=== PATIENT | female | born 1950 | race Caucasian/White ===

== ENCOUNTER → 2017-01-16 | Outpatient (REF) ==
[~2017-01-16] MED LIST: ALBUTEROL SULFAT3 M3 INH; ALBUTEROL1.25 MG/3 IH; BYSTOLIC10 MG PO; CLARITIN 1010 MG/TAB PO; CYANOCOBAL1000 MCG/1 IM; CYANOCOBAL1000 MCG/1 INJ; DRISDOL50000 IU PO; DYRENIUM 50MG C50 MG PO; FLOVENT 44MCG I13 GM IH; HALCION0.25 MG PO; LOTRIMIN1% TP; MAXZIDE 50 MG-71 TAB PO; NASONEX SPRAY17 GM NAS; PREDNISONE 5MG5 MG PO; PREDNISONE20 MG PO; PROAIR HFA0.09 MG/AC INH; PROTONIX 40MG T40 MG PO; RT SPIRIVA18 MCG IH; SINGULAIR 110 MG/TAB PO; TYLENOL 325MG325 MG PO; TYLENOL 500MG500 MG PO; VITAMIN D 50,1.25 MG PO
== END ==
LOC: ZLAB.WCH 09:42
DX: Z01.89 Encounter for other specified special examinations (principal)

== ENCOUNTER → 2022-03-01 | Outpatient (CLI) | payer OTHER | LOC: MC.RAD 07:00 | DX: N63.10 Unspecified lump in the right breast, unspecified quadrant (principal) ==